=== PATIENT | male | born 1960 | race Two or more races ===

== ENCOUNTER 2018-04-06 11:30 | Outpatient (AMBR) | payer MEDICAID, SELFPAY ==
--- NOTE | 2018-03-29 12:02 | PT.ODAYNRPT ---
PT Outpatient Daily Note Date of Service: March 29, 2018 OP Daily Note Visit Reasons: knee pain Outpatient Physical Therapy Treatment Date: 03/29/18 Subjective: Pt's knee still hurting. Pt stated that surgeon will not give him any pain meds with norcotics. Pt has been walking around but notice increase pain on the side. Objective: Please see flow chart for list of ther ex performed Assessment: tolerate exercises performed minimal pain today. Pt continues to demonstrate good knee mobility Plan: Continue with PT Length of Time (minutes) of Treatment: 30 Minutes Office Procedures PT Procedures PT Date of Service: 03/29/18 Therapeutic Exercise 30 minutes: Yes
--- NOTE | 2018-04-06 11:54 | PT.ODAYNRPT ---
PT Outpatient Daily Note Date of Service: April 06, 2018 OP Daily Note Visit Reasons: knee pain Outpatient Physical Therapy Treatment Date: 04/06/18 Subjective: Pt mention that his knee is popping. Pt still has pain on the side of the knee with walking. Pt mention that his morning stiffness is still present Objective: Please see flow chart for list of ther ex performed Assessment: minimal exercises performed today due to pain. Plan: Continue with PT Length of Time (minutes) of Treatment: 30 Minutes Office Procedures PT Procedures PT Date of Service: 03/29/18 Therapeutic Exercise 30 minutes: Yes PT Procedures PT Date of Service: 04/06/18 Therapeutic Exercise 30 minutes: Yes
== END 2018-04-10 23:59 | disposition home or self-care (01) ==
PROVIDERS: PCP Orthopaedic Surgery; Referring Provider Orthopaedic Surgery; Visit Provider Orthopaedic Surgery
DX: R53.1 Weakness (principal); M25.561 Pain in right knee; R26.2 Difficulty in walking, not elsewhere classified; M25.661 Stiffness of right knee, not elsewhere classified; Z96.651 Presence of right artificial knee joint
CPT/HCPCS: 97110

== ENCOUNTER 2024-06-26 20:43 | Emergency (ER) | payer MEDICARE, SELFPAY ==
[2024-06-26 20:45] VITALS: BP 153/89; PULSE 84; RESP 20; TEMP 36.9; O2SAT 96
[2024-06-26 20:49] VITALS: BMI 26.6
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
[2024-06-26] MEDS: DIPHTH,PERTUSS(ACELL),TET VAC 0.5 ML SYR- ADULT IMi (22:04)
[2024-06-26] MEDS: LIDOCAINE HCL 1% 20 ML VIAL IM (22:05)
[2024-06-26 22:31] VITALS: RESP 18
== END 2024-06-26 22:32 | disposition home or self-care (01) ==
PROVIDERS: Emergency Provider Emergency Medicine
DX: S01.81XA Laceration without foreign body of other part of head, initial encounter (principal); Z59.01 Sheltered homelessness; X99.9XXA Assault by unspecified sharp object, initial encounter; Z23 Encounter for immunization
CPT/HCPCS: 12016; 90471; 90715; 99283; J3490